=== PATIENT | female | born 1990 | race Caucasian/White ===

== ENCOUNTER → 2016-11-02 | Outpatient (CLI) | payer OTHER ==
--- NOTE | ~2016-11-02 | CT99 ---
[facility] A Service of [facility] RADIOLOGY TEXT RESULTS PATIENT: MAYNOR CARREON LOCATION: [facility] : [birth year] UNIT #: [id number] AGE: [address]: NIKKIE VILLA MD SEX: F ORDER DR: [id number] [address] [address] [id number] MR#: [id number] Acc #: [id number] NAME: MAYNOR CARREON : 1990 SEX: F STUDY DATE/TIME: 11/02/2016 13:14 UNIT: [facility] ROOM: STUDY DESCRIPTION: CT Maxillofacial Area W Cont Attending Physician: Nikkie Villa M.D. Referring Physician: Nikkie Villa M.D. Ordering Physician: Nikkie Villa M.D. Primary Care Physician: Nikkie Villa M.D. MEDICAL IMAGING REPORT This report is preliminary unless electronic signature is present. EXAM Maxillofacial CT with contrast HISTORY Left facial mass for three years. Pain and tenderness. The CT exam was performed with one or more of the following radiation dose reduction techniques: automatic exposure control, adjustment of mA and/or kV according to patient size, and iterative reconstruction. FINDINGS There is a superficial subcutaneous mass almost certainly representing an epidermal inclusion cyst. It measures about 1.9 x 1.2 x 1.7 cm and it just superficial to the angle of the mandible. There is no additional cervical soft tissue mass or adenopathy. The vascular structures including the carotid bifurcations appear normal without evidence of plaque or stenosis by NASCT or other criteria. There are small normal size cervical lymph nodes as well. There is no CT evidence of substantial dental or periodontal disease in the mandible or maxilla, and the visualized paranasal sinuses and orbital soft tissues and visualized intracranial compartment are normal. . IMPRESSION Palpable abnormality corresponds to what appears to be a small epidermal inclusion cyst. Otherwise normal. Dictated by... Jesse Liz M.D. THIS IS AN ELECTRONICALLY VERIFIED REPORT [facility] A Service of [facility] RADIOLOGY TEXT RESULTS PATIENT: MAYNOR CARREON LOCATION: [facility] : [birth year] UNIT #: [id number] AGE: [address]: NIKKIE VILLA MD SEX: F ORDER DR: Jesse Liz M.D. at 11/06/2016 3:57 PM TEV/cmm TD: 11/05/2016 13:27 JOB #: [id number] MEDICAL IMAGING REPORT Page 1 of 1
== END | disposition home or self-care (01) ==
LOC: SCT 12:14
DX: D48.0 Neoplasm of uncertain behavior of bone and articular cartilage (principal)
CPT/HCPCS: 70487; Q9967